=== PATIENT | male | born 2005 | race African-American/Black ===

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

== ENCOUNTER 2025-06-27 11:52 | Emergency (ER) | payer OTHER, SELFPAY ==
[2025-06-27 12:03] VITALS: BP 131/76; PULSE 74; RESP 18; TEMP 36.9; O2SAT 100
--- NOTE | 2025-06-27 12:31 | ED.DENTAL ---
HPI - Dental/Oral General Chief complaint: Dental/Oral Stated complaint: Mouth Problem Time Seen by Provider: 06/27/25 12:20 Source: patient, RN notes reviewed and old records reviewed Mode of arrival: ambulatory Limitations: no limitations History of Present Illness HPI Narrative: 20 year old male accompanied by grandmother with complaints of having abscess or lesion to the inner aspect of his left cheek for about a month. Patient has small red area to the tissue of cheek next to left bottom next to where wisdom tooth would be with small whitish tissue also. Patient reports that he does not have a dentist, He stats that eating and drinking aggravates area, has taken some ibuprofen Onset (ago): month(s) (1) Duration: constant Severity: moderate Severity scale (1-10): 5 Exacerbating factors: other (eating and drinking) Treatment prior to arrival: oral analgesic (Ibuprofen) Related Data Allergies Allergy/AdvReac Type Severity Reaction Status Date / Time No Known Allergies Allergy Verified 06/27/25 11:54 Review of Systems Review of Systems: CONSTITUTIONAL: Denies fever, chills, or sweats. ENT: Denies rhinorrhea, congestion, sore throat, or otalgia. Reports mouth soreness to inner left cheek next to most posterior aspect next to where wisdom tooth would come through on left bottom of mouth. CARDIOVASCULAR: Denies chest pain, palpitations, or edema. RESPIRATORY: Denies cough or dyspnea. SKIN: Denies rash or itching. MUSCULOSKELETAL: Denies myalgia. NEUROLOGIC: Denies headache All systems reviewed & are unremarkable except as noted in HPI and below PMFSH Past Medical History Medical History (Updated 06/28/25 @ 21:19 by Carmita Lin APRN) Strep throat ADD (attention deficit disorder) Anxiety and depression Asthma Seasonal allergies Social History Social History (Updated 06/28/25 @ 21:18 by Carmita Lin APRN) Smoking status: Never smoker Alcohol intake: never Substance use type: does not use Living arrangements: with family Gender identity (if verbalized by the patient): Male Comments At time of signature, agree with nursing past medical, surgical, social and family history. There is no relevant family history pertinent to the presenting complaint Exam Narrative: GENERAL: Well-appearing, well-nourished, and in no acute distress. HEAD: Normocephalic, atraumatic. EYES: PERRLA and EOMI. ENT: Nares clear, no rhinorrhea or epistaxis. Mucous membranes moist. dentition noted to be within normal no signs of dental caries or gum swelling, has small raised area with minimal redness and some whitish tissue to area left lower most posterior cheek area next to where wisdom tooth would be, no drainage noted, no facial swelling NECK: Supple.no lymphadenopathy CHEST: Clear to auscultation. No respiratory distress.SAO2 100% on room air HEART: Regular rate and rhythm. No murmur heard. Normal peripheral pulses. SKIN: Warm, dry, no rash. NEURO: No focal deficits. Alert and oriented x3. Course Course Emergency Course: Patient is aware of diagnosis, understands and agrees to treatment plan. Anticipatory guidance given. Patient agrees to follow-up as directed and is aware of reasons to seek care at the emergency department. Portions of this record may have been created with voice recognition software Level of Care: Express Care Visit Vital Signs Vital signs: Vital Signs Temperature 36.9 C 06/27/25 12:03 Pulse Rate 74 06/27/25 12:03 Respiratory Rate 18 06/27/25 12:03 Blood Pressure 131/76 06/27/25 12:03 Pulse Oximetry 100 06/27/25 12:03 Oxygen Delivery Room Air 06/27/25 12:03 Temperature 36.9 C 06/27/25 12:03 Pulse Rate 74 06/27/25 12:03 Respiratory Rate 18 06/27/25 12:03 Blood Pressure 131/76 06/27/25 12:03 Pulse Oximetry 100 06/27/25 12:03 Oxygen Delivery Room Air 06/27/25 12:03 Reviewed MDM - Dental/Oral MDM Narrative Medical decision making narrative: Patients pain and complaint coupled with physical findings are consistent with dentalgia. There are no focal signs of space occupying lesions that are compromising to the airway; no dysphagia, odynophagia, dysphonia, or dyspnea. No uvular deviation or soft palate edema. Patient is non-toxic appearing. The floor of the mouth is soft with no signs of Triston's Angina; no induration below mandible, no neck pain.? Patient is without trismus or drooling and able to swallow secretions.? Patient is felt appropriate for discharge home with dental follow up. Differential Diagnosis Differential diagnosis: Likely gingival abscess, aphthous ulcer and other (cheek soreness left) Medical Records Attestation: I reviewed the patient's medical records. Critical Care Time Critical Care Time Critical Care Time: No Discharge Plan Discharge Clinical Impression: Aphthous ulcer Patient Disposition: Home Condition: Stable Instructions: Antibiotic Form Additional Instructions: Avoid temperature extremes May apply heat or ice to the face Gentle brushing and flossing Antibiotic as directed Tylenol for lesser pain Use ibuprofen regularly Follow-up with the dentist as soon as possible--see the list provided Mouthwash as prescribed twice daily If your symptoms persist, change or worsen significantly before you can contact your personal physician then please, without delay, go to the emergency department for further evaluation. Follow-up with PCP in 7-10 days or sooner if needed Follow up with PCP soon in regards to your blood pressure which is elevated above threshold for referral. Blood pressure above 120/80 may indicate pre-hypertension.131/76 Patient Language: Nicarag[place] Prescriptions: New amoxicillin 500 mg capsule 500 mg PO TID Qty: 30 0RF chlorhexidine gluconate [Peridex] 0.12 % mouthwash 15 ml buccal BID Qty: 473 0RF No Action famotidine [Pepcid] 20 mg tablet 20 mg PO DAILY Qty: 30 0RF Rx Instructions: take daily cetirizine [24Hour Allergy] 10 mg tablet 10 mg PO DAILY Qty: 30 0RF Follow-up/Referrals: PHYSICIAN,SUPERVISOR [employer] [Primary Care Provider, Internal Medicine] Stand Alone Forms: Work/School Release IP Time of Disposition: 12:39 Quality Elias Coma Scale Eyes: Open Verbal: Oriented and Alert Motor: Follows Commands [place] Coma Total Score: 15
== END 2025-06-27 12:47 | disposition home or self-care (01) ==
PROVIDERS: Emergency Provider Registered Nurse
DX: K12.0 Recurrent oral aphthae (principal)
CPT/HCPCS: 99213; G0463